=== PATIENT | male | born 1960 | race Caucasian/White ===

== ENCOUNTER 2023-01-02 02:17 | Inpatient (IN) | payer OTHER ==
[~2023-01-02] VITALS: Ht 185.4 cm; Wt 81.9 kg
[~2023-01-02 02:17] MED LIST: AMOCLA875 PO; ANTIBIOTIC; CYCL10 PO; IBUP800 PO; NAPR500EC PO; NICO21TP TOP; OXYACE5T PO; Percocet 5-3251 EACH PO; TRAM50 PO
[2023-01-02 04:06] LABS: BASOPHILS ABSOLUTE AUTO 0.05 K/mm3 (0.00-0.23); BASOPHILS PERCENT AUTO 2 % (0-2); EOSINOPHILS ABSOLUTE AUTO 0.06 K/mm3 (0.00-0.68); EOSINOPHILS PERCENT AUTO 2 % (0-6); Hematocrit 42.7 % (37.0-53.0); Hemoglobin 14.7 g/dL (13.5-17.5); IMMATURE GRAN PERCENT AUTO 0 % (0-1); LYMPHOCYTES ABSOLUTE AUTO 0.67 K/mm3 (0.84-5.20); LYMPHOCYTES PERCENT AUTO 22 % (21-46); MONOCYTES ABSOLUTE AUTO 0.92 K/mm3 (0.16-1.47); MONOCYTES PERCENT AUTO 31 % (4-13); Mean Corpuscular HGB 31.7 pg (26.0-34.0); Mean Corpuscular HGB Conc 34.4 g/dL (31.5-36.5); Mean Corpuscular Volume 92 fL (80-100); Mean Platelet Volume 10.4 fL (9.1-12.4); NEUTROPHILS ABSOLUTE AUTO 1.31 K/mm3 (1.96-9.15); NEUTROPHILS PERCENT AUTO 43 % (41-73); Platelet Count 209 K/mm3 (150-400); RDW Coefficient Variation 14.2 % (11.7-14.2); RDW Standard Deviation 47.9 fL (35.1-46.3); Red Blood Cell Count 4.64 M/mm3 (4.30-5.90); White Blood Cell Count 3.01 K/mm3 (4.00-11.30)
[2023-01-02 04:29] LABS: Albumin, Blood 2.9 g/dL (3.4-5.0); Albumin/Globulin Ratio 0.7 (0.8-1.8); Bilirubin, Total 0.9 mg/dL (0.1-1.0); Bun/Creatinine Ratio 11.8 (12.0-20.0); Creatinine, Blood 1.02 mg/dL (0.60-1.20); Potassium, Blood 3.9 mmol/L (3.5-5.5); Total Protein, Blood 6.9 g/dL (6.4-8.2)
[2023-01-02 08:51] LABS: U Amphetamine Screen DETECTED; U Barbituate Screen Not Detected; U Benzodiazapine Screen Not Detected; U Buprenorphine Screen Not Detected; U Cannabinoids Screen DETECTED; U Cocaine Screen Not Detected; U Methadone Screen Not Detected; U Methamphetamine Screen DETECTED; U Opiates Screen DETECTED; U Oxycodone Screen Not Detected; U Phencyclidine Screen Not Detected; U Propoxyphene Screen Not Detected
[2023-01-02 09:22] LABS: Hematocrit 40.1 % (37.0-53.0); Hemoglobin 13.6 g/dL (13.5-17.5); Mean Corpuscular HGB 31.6 pg (26.0-34.0); Mean Corpuscular HGB Conc 33.9 g/dL (31.5-36.5); Mean Corpuscular Volume 93 fL (80-100); Mean Platelet Volume 9.9 fL (9.1-12.4); Platelet Count 173 K/mm3 (150-400); RDW Coefficient Variation 14.2 % (11.7-14.2); RDW Standard Deviation 49.1 fL (35.1-46.3); White Blood Cell Count 2.28 K/mm3 (4.00-11.30)
[2023-01-02 09:38] LABS: Albumin, Blood 2.4 g/dL (3.4-5.0); Albumin/Globulin Ratio 0.7 (0.8-1.8); Bun/Creatinine Ratio 9.8 (12.0-20.0); Calcium, Blood 8.1 mg/dL (8.5-10.1); Creatinine, Blood 1.02 mg/dL (0.60-1.20); Globulin, Blood 3.6 g/dL (2.2-4.0); Potassium, Blood 4.1 mmol/L (3.5-5.5)
[2023-01-02 09:52] LABS: BAND PERCENT MAN 5 % (0-8); BASOPHILS PERCENT MAN 0 % (0-2); EOSINOPHILS ABSOLUTE MAN 0.11 K/mm3 (0.00-0.68); EOSINOPHILS PERCENT MAN 5 % (0-6); LYMPHOCYTES % ATYPICAL MANUAL 1 % (0-0); LYMPHOCYTES ABSOLUTE MAN 0.86 K/mm3 (0.84-5.20); LYMPHOCYTES PERCENT MAN 37 % (21-46); METAMYELOCYTE ABSOLUTE MAN 0.02 K/mm3 (0.00-0.00); METAMYELOCYTE PERCENT MAN 1 % (0-0); MONOCYTES PERCENT MAN 22 % (4-13); NEUTROPHILS ABSOLUTE MAN 0.77 K/mm3 (1.96-9.15); SEG NEUTROPHILS PERCENT MAN 29 % (41-73); TOTAL CELLS COUNTED 100
[2023-01-02 09:54] VITALS: BP 135/83
--- NOTE | 2023-01-02 16:09 | NUR ---
SHIFT SUMMARY PT AxOx4. PT ARRIVED TO MED FLOOR FOR ADMISSION AT APPROX 0845. PT REPORTS PAIN IN RLE R/T CELLULITIS. PT IS NON WEIGHT BEARING TO RLE D/T PAIN. PT ABLE TO STAND PIVOT WITHOUT DIFFICULTY TO TRANSFER IF NEEDED. PT MEDICATED PER EMAR WITH REPORTED PAIN RELIEF. PT IS DROWSY THIS SHIFT, NAPPING OFTEN T/O THE DAY. CIWA'S ORDERED. PT RECEIVING IV ABX. PICS IN CHART OF CELLULITIS ON RLE. VITALS REVIEWED. PT IS CURRENTLY RESTING IN BED WITH CALL LIGHT IN REACH. DENIES ANY NEEDS AT THIS TIME. PT EDUCATED ON FIRE RISK AND SAFETY WITH VERBALIZED UNDERSTANDING.
[2023-01-02 19:23] VITALS: BP 133/100
[2023-01-03 03:48] VITALS: BP 122/74
--- NOTE | 2023-01-03 04:18 | NUR ---
SHIFT SUMMARY ADMITTED FOR RIGHT FOOT CELLULITIS. FULL CODE. PLAN IS FOR IV ANTIB RX, IV FLUIDS. OUTPATIENT HEMATOLOGY FOR NEUTROPENIA. NS @ 125 ML/HR. REGULAR DIET. Q4 CIWAS. STAND/PIVOT TO BSC. A&O X4. ON RA. BLOOD CULTURES PENDING. HX: POLYSUBSTANCE ABUSE.
[2023-01-03 04:59] LABS: Hematocrit 40.2 % (37.0-53.0); Mean Corpuscular HGB 31.9 pg (26.0-34.0); Mean Corpuscular HGB Conc 34.8 g/dL (31.5-36.5); Mean Corpuscular Volume 92 fL (80-100); Mean Platelet Volume 10.8 fL (9.1-12.4); Platelet Count 188 K/mm3 (150-400); RDW Coefficient Variation 13.8 % (11.7-14.2); RDW Standard Deviation 46.7 fL (35.1-46.3); Red Blood Cell Count 4.39 M/mm3 (4.30-5.90); White Blood Cell Count 3.47 K/mm3 (4.00-11.30)
[2023-01-03 05:32] LABS: BAND PERCENT MAN 1 % (0-8); BASOPHILS ABSOLUTE MAN 0.03 K/mm3 (0.00-0.23); BASOPHILS PERCENT MAN 1 % (0-2); EOSINOPHILS ABSOLUTE MAN 0.06 K/mm3 (0.00-0.68); EOSINOPHILS PERCENT MAN 2 % (0-6); LYMPHOCYTES ABSOLUTE MAN 0.97 K/mm3 (0.84-5.20); LYMPHOCYTES PERCENT MAN 28 % (21-46); MONOCYTES ABSOLUTE MAN 1.45 K/mm3 (0.16-1.47); MONOCYTES PERCENT MAN 42 % (4-13); NEUTROPHILS ABSOLUTE MAN 0.93 K/mm3 (1.96-9.15); SEG NEUTROPHILS PERCENT MAN 26 % (41-73); TOTAL CELLS COUNTED 100
[2023-01-03 05:41] LABS: Albumin, Blood 2.4 g/dL (3.4-5.0); Albumin/Globulin Ratio 0.6 (0.8-1.8); Bun/Creatinine Ratio 13.9 (12.0-20.0); Calcium, Blood 8.6 mg/dL (8.5-10.1); Creatinine, Blood 0.93 mg/dL (0.60-1.20); Globulin, Blood 3.9 g/dL (2.2-4.0); Potassium, Blood 4.1 mmol/L (3.5-5.5); Total Protein, Blood 6.3 g/dL (6.4-8.2)
[2023-01-03 07:24] VITALS: BP 119/74
[2023-01-03 16:10] VITALS: BP 127/71
[2023-01-03 19:32] VITALS: BP 128/76
--- NOTE | 2023-01-03 19:33 | NUR ---
SHIFT SUMMARY PT A&OX4 AND COOPERATIVE OF CARE. PT SOMNOLENT FOR MOST OF THE MORNING. CONTINUING IV ABX. CELLULITES OF R LEG IS OUTLINED IN MARKER. PT'S LEG ELEVATED ON TWO PILLOW T/O DAY. LEG IS VERY PAINFUL AND PT WAS MEDICATED PER EMAR WITH LITTLE EFFECT. USES URINAL INDPENDENTLY. CALLS APPROPRIATLY. BED IN LOWEST POSITIN WITH CALL LIGHT IN REACH.
[2023-01-03 19:40] LABS: Vancomycin, Trough 10.3 ug/mL (5.0-10.0)
--- NOTE | 2023-01-03 22:52 | NUR ---
RN NOTE MR CAMPUZANO C/O 10/10 PAIN TO RIGHT FOOT. GIVEN NORCO WHICH HE SAID WOULD NOT WORK, HE SAID THAT DILAUDID WORKS FOR HIS PAIN RELIEF. SINCE NORCO PT HAS BEEN RESTING WITH EYES CLOSED QUIETLY IN DARKENED ROOM, APPEARS TO BE SLEEPING. R LEG IS RED AND SWOLLEN. OPEN AREA TO TOP OF RIGHT FOOT. FOOT ELEVATED ON PILLOW. BED LOW, CALL LIGHT IN REACH.
[2023-01-04 04:15] VITALS: BP 137/84
[2023-01-04 04:50] LABS: BASOPHILS ABSOLUTE AUTO 0.05 K/mm3 (0.00-0.23); BASOPHILS PERCENT AUTO 1 % (0-2); EOSINOPHILS ABSOLUTE AUTO 0.18 K/mm3 (0.00-0.68); EOSINOPHILS PERCENT AUTO 5 % (0-6); Hematocrit 39.8 % (37.0-53.0); Hemoglobin 13.8 g/dL (13.5-17.5); IMMATURE GRAN ABSOLUTE AUTO 0.01 K/mm3 (0.00-0.10); IMMATURE GRAN PERCENT AUTO 0 % (0-1); LYMPHOCYTES ABSOLUTE AUTO 0.88 K/mm3 (0.84-5.20); LYMPHOCYTES PERCENT AUTO 24 % (21-46); MONOCYTES ABSOLUTE AUTO 1.02 K/mm3 (0.16-1.47); MONOCYTES PERCENT AUTO 27 % (4-13); Mean Corpuscular HGB 31.5 pg (26.0-34.0); Mean Corpuscular HGB Conc 34.7 g/dL (31.5-36.5); Mean Corpuscular Volume 91 fL (80-100); NEUTROPHILS ABSOLUTE AUTO 1.61 K/mm3 (1.96-9.15); NEUTROPHILS PERCENT AUTO 43 % (41-73); Platelet Count 227 K/mm3 (150-400); RDW Coefficient Variation 13.8 % (11.7-14.2); RDW Standard Deviation 47.1 fL (35.1-46.3); Red Blood Cell Count 4.38 M/mm3 (4.30-5.90); White Blood Cell Count 3.75 K/mm3 (4.00-11.30)
--- NOTE | 2023-01-04 05:07 | NUR ---
SHIFT SUMMARY MR CAMPUZANO HAS RED SWOLLEN RIGHT LOWER LEG AND FOOT. ELEVATED ON PILLOW, PAINFUL AT 8-10/10 CONSTANTLY. HE APPEARED COMFORTABLE IN BETWEEN NORCO DOSAGES AND HE SAID THAT HE HAS SLEPT BUT SAID THAT THE NORCO DOESN'T WORK. VOIDED LARGE UOP OVERNIGHT. BED LOW, CALL LIGHT IN REACH, BED ALARM ON.
[2023-01-04 07:18] VITALS: BP 140/86
[2023-01-04 15:58] VITALS: BP 129/86
--- NOTE | 2023-01-04 15:58 | NUR ---
ORDERS GIVEN TO TRANSFER PT TO PCU. CALLED AND GAVE REPORT TO RECIEVING NURSETHUY. PT AND NOTIFIED OF TRANSFER AND EXPLAINED THE REASON AND ANSWERED ALL QUESTIONS. BELONGINGS AND MEDICATIONS PACKED UP AND SENT WITH PT. PT TAKEN BY BED.
--- NOTE | 2023-01-04 16:01 | NUR ---
PT A&OX4 AND PLEASANT. PT APPEARS EXHAUSTED AND STATES HE WAS UNABLE TO SLEEP MUCH LAST NIGHT. PT VERBALIZES FEELING SOB AND THAT HE HAS TO "WORK HARDER" TO BREATH. CONTINIOUS PULSE OX SHOWS THAT PT IS SATING IN THE HIGH 90'S. PT DOES DESAT WHEN HE FALLS ASLEEP. NO C/O PAIN. BP REAMINS SOFT. PT USING URNIAL INDEPENDENTLY AND URINE OUTPUT IS INCREASING. ABLE TO PASS MEDIUM BM TODAY. PT UNSTEADY ON FEET AND VERBALIZED FEELING DIZZY. AT BEDSIDE. PERSONAL CONSULTANT, DR. BETTENCOURT, IN TO SEE PT. PT TRANSFERED TO PCU AT ABOUT 1430. REPORT GIVEN TO RECIEVING NURSE.
[2023-01-04 19:14] VITALS: BP 127/72
--- NOTE | 2023-01-04 19:17 | NUR ---
SHIFT SUMMARY PT A&OX4 AND COOPERATIVE OF CARE. NO ACUTE CHANGES. PT C/O PAIN IN R FOOT AT START OF SHIFT AND WAS MEDICATED PER EMAR. PT SLEPT MOST OF DAY. HAND BOOTMAKER HELPED PT TO CHAIR TO WASH AND CHANGE LINENS. PT TOLERATED WELL. VSS. CONTINUING IV ABX. WOUND CARE CONSULT ORDERED. BED IN LOWEST POSITION AND CALL LIGHT IN REACH.
[2023-01-05 04:24] VITALS: BP 139/78
[2023-01-05 05:01] LABS: BASOPHILS ABSOLUTE AUTO 0.06 K/mm3 (0.00-0.23); BASOPHILS PERCENT AUTO 2 % (0-2); EOSINOPHILS ABSOLUTE AUTO 0.24 K/mm3 (0.00-0.68); EOSINOPHILS PERCENT AUTO 8 % (0-6); Hematocrit 39.8 % (37.0-53.0); Hemoglobin 13.5 g/dL (13.5-17.5); IMMATURE GRAN ABSOLUTE AUTO 0.02 K/mm3 (0.00-0.10); IMMATURE GRAN PERCENT AUTO 1 % (0-1); LYMPHOCYTES ABSOLUTE AUTO 0.91 K/mm3 (0.84-5.20); LYMPHOCYTES PERCENT AUTO 28 % (21-46); MONOCYTES ABSOLUTE AUTO 0.88 K/mm3 (0.16-1.47); MONOCYTES PERCENT AUTO 27 % (4-13); Mean Corpuscular HGB 31.4 pg (26.0-34.0); Mean Corpuscular HGB Conc 33.9 g/dL (31.5-36.5); Mean Corpuscular Volume 93 fL (80-100); Mean Platelet Volume 10.3 fL (9.1-12.4); NEUTROPHILS ABSOLUTE AUTO 1.11 K/mm3 (1.96-9.15); NEUTROPHILS PERCENT AUTO 34 % (41-73); Platelet Count 231 K/mm3 (150-400); RDW Coefficient Variation 13.9 % (11.7-14.2); RDW Standard Deviation 47.7 fL (35.1-46.3); White Blood Cell Count 3.22 K/mm3 (4.00-11.30)
[2023-01-05 05:37] LABS: Albumin, Blood 2.3 g/dL (3.4-5.0); Albumin/Globulin Ratio 0.6 (0.8-1.8); Bilirubin, Total 0.5 mg/dL (0.1-1.0); Bun/Creatinine Ratio 16.7 (12.0-20.0); Calcium, Blood 8.7 mg/dL (8.5-10.1); Creatinine, Blood 1.02 mg/dL (0.60-1.20); Globulin, Blood 3.8 g/dL (2.2-4.0); Potassium, Blood 4.1 mmol/L (3.5-5.5); Total Protein, Blood 6.1 g/dL (6.4-8.2)
--- NOTE | 2023-01-05 06:16 | NUR ---
SHIFT SUMMARY PT SLEPT MAJORITY OF SHIFT, PRN PAIN MEDICATION GIVEN X1 FOR R FOOT PAIN WITH POSITIVE EFFECT. Q1H FIRE SAFETY CHECKS COMPLETED. NO IGNITION SOURCES FOUND
[2023-01-05 08:09] VITALS: BP 129/77
--- NOTE | 2023-01-05 09:00 | NUR ---
pt laying in bed awake a/ox4, cooperative with care, follows commands well, states he has pain in his right foot, will medicate, lungs are clear t/o, on r/a, no cough noted, hrr, no edema noted, iv to rac site is clear and patent, btx4, abd flat soft nontender, voids without diff, skin has wound to top of right foot, with some drainage, will place dressing, al braga, call light in reach.
[2023-01-05] MEDS ORDERED: Acetaminophen650 M1 PO (14:54)
[2023-01-05] MEDS ORDERED: VISBIOME 112.51 EACH PO (14:55)
[2023-01-05] MEDS ORDERED: CEFD300 PO (14:55)
[2023-01-05] MEDS ORDERED: IBUP400 PO (14:56)
[2023-01-05 15:35] VITALS: BP 125/68
--- NOTE | 2023-01-05 18:14 | NUR ---
pt has been discharged to home, changed dressing on foot again as is started bleeding through the dressing, gave him a pain pill as he reports 8/10 pain, visitor here to take him home, iv removed intact, meds were faxed to [facility], left via wheelchair with truck cleaner and belongings.
== END 2023-01-05 18:23 | disposition home or self-care (01) | DRG 872 ==
LOC: ER 02:17 → MEDS 06:05
PROVIDERS: Family Medicine; Student in an Organized Health Care Education/Training Program; ADMIT Internal Medicine
DX: A41.9 Sepsis, unspecified organism (principal); L03.115 Cellulitis of right lower limb; F17.200 Nicotine dependence, unspecified, uncomplicated; F10.11 Alcohol abuse, in remission; D70.8 Other neutropenia; B18.2 Chronic viral hepatitis C; F15.10 Other stimulant abuse, uncomplicated; F12.10 Cannabis abuse, uncomplicated; F11.10 Opioid abuse, uncomplicated; Z79.899 Other long term (current) drug therapy; Z71.51 Drug abuse counseling and surveillance of drug abuser; Z71.41 Alcohol abuse counseling and surveillance of alcoholic
CPT/HCPCS: 36415; 73701; 80053; 80202; 83605; 85025; 85060; 87040; 93971; 96365-59; 96366-59; 96367-59; 96375-59; 99285-25; A9270; J0692; J1650; J1885; J2543; J3370; J7030; J7050; Q9967